=== PATIENT | male | born 1980 | race Hispanic/Latino ===

== ENCOUNTER 2019-03-29 17:08 | Inpatient (IN) | payer OTHER ==
[2019-03-29] VITALS (17 sets, daily range): BP systolic 102–121; BP diastolic 46–78
[~2019-03-29] VITALS: Ht 175.3 cm; Wt 88.4 kg
[2019-03-29] MEDS ORDERED: KETOROLAC TROMETHAMINE 30MG/ML ONE (17:12)
[2019-03-29] MEDS ORDERED: CEFAZOLIN SODIUM 1 GM VIAL ONE (17:12)
[2019-03-29] MEDS ORDERED: SODIUM CHLORIDE 0.9% 1000ML 1,000 ML IV ONE (17:13)
[2019-03-29] MEDS ORDERED: SODIUM CHLORIDE 0.9% 50 ML IV ONE (17:18)
[2019-03-29] MEDS ORDERED: TETANUS/DIPHTHERIA TOXOID [ADULT] 0.5 ML VIAL IM ONE (17:20)
[2019-03-29] MEDS ORDERED: TETANUS IMMUNE GLOBULIN 250 UNIT SYRINGE IM ONE (17:30)
[2019-03-29 17:36] LABS: BASOPHILS % (AUTO) 0.4 % (0.0-5.0); EOSINOPHILS % (AUTO) 0.2 % (0.0-8.0); HEMATOCRIT 43.6 % (42-54); LYMPHOCYTES % (AUTO) 5.9 % (21.0-51.0); MEAN CORPUSCULAR HEMOGLOBIN 31.4 pg (27.0-33.0); MEAN CORPUSCULAR HGB CONC 34.9 g/dL (32.0-36.0); MEAN CORPUSCULAR VOLUME 90.1 fL (79-99); MONOCYTES % (AUTO) 4.6 % (3.0-13.0); NEUTROPHILS % (AUTO) 88.4 % (40.0-77.0); PLATELET COUNT (AUTO) 344 K/uL (130-400); RED BLOOD CELL COUNT(AUTO) 4.84 MIL/uL (4.50-6.20); RED CELL DISTRIBUTION WIDTH 12.1 % (11.0-15.5); WHITE BLOOD COUNT (AUTO) 18.8 K/uL (4.8-10.8)
[2019-03-29 17:57] LABS: CREATININE 0.9 mg/dL (0.5-1.5); POTASSIUM 3.4 mmol/L (3.5-5.1)
[2019-03-29 18:05] LABS: INR 0.93 (0.85-1.15); PARTIAL THROMBOPLASTIN TIME 25.9 SEC (26.3-35.5); PROTHROMBIN TIME 9.8 SEC (9.6-11.6)
[2019-03-29] MEDS: LACTATED RINGERS 1000ML 1,000 ML IV SCH (19:00)
[2019-03-29] MEDS ORDERED: ZOSYN 3.375GM+NS 50ML 50 ML IV SCH (19:00)
[2019-03-29] MEDS ORDERED: KETOROLAC TROMETHAMINE 15MG/ML IV PRN (19:15)
[2019-03-29] MEDS ORDERED: KETOROLAC TROMETHAMINE 30MG/ML IV PRN (19:15)
[2019-03-29] MEDS ORDERED: LACTATED RINGERS 1000ML 1,000 ML IV ONE (19:22)
[2019-03-29] MEDS ORDERED: ONDANSETRON HCL 4 MG/2 ML VIAL IVP PRN (19:30)
[2019-03-29] MEDS ORDERED: MIDAZOLAM HCL 1 MG/ML 2ML VIAL ONE ×2 (19:31→19:32)
[2019-03-29] MEDS ORDERED: DEXAMETHASONE SOD PHOSPHATE 10MG/ML 1ML VIAL ONE (19:32)
[2019-03-29] MEDS ORDERED: ONDANSETRON HCL 4 MG/2 ML VIAL ONE (19:32)
[2019-03-29] MEDS ORDERED: LIDOCAINE PF 2% 5ML ABBOJECT ONE (19:32)
[2019-03-29] MEDS ORDERED: PROPOFOL 10 MG/ML 20ML VIAL IV ONE (19:32)
[2019-03-29] MEDS ORDERED: FENTANYL CITRATE PF 50 MCG/1 ML 2ML VIAL ONE (19:33)
[2019-03-29] MEDS ORDERED: ROCURONIUM 10MG/1ML SYR 10 MG/ML ML ONE (19:33)
[2019-03-29] MEDS ORDERED: POTASSIUM CHLORIDE 20MEQ/100ML 100 ML IV PRN ×2 (19:45→21:00)
[2019-03-29] MEDS ORDERED: LIDOCAINE HCL-MPF 1% 2ML VIAL IV PRN (19:45)
[2019-03-29] MEDS ORDERED: GLYCOPYRROLATE 1 MG/5 ML SYRINGE ONE (20:25)
[2019-03-29] MEDS ORDERED: NEOSTIGMINE 5MG/5ML SYR IV ONE (20:25)
[2019-03-29] MEDS ORDERED: RACEPINEPHRINE HCL 2.25% 0.5 ML NEB SOLN ONE (20:35)
[2019-03-29] MEDS ORDERED: MEPERIDINE-PF 25 MG/ML SYG ONE (20:57)
[2019-03-29] MEDS ORDERED: POTASSIUM CHLORIDE 10% ELIXIR 20 MEQ/15 ML UDCUP PO PRN (21:00)
[2019-03-29] MEDS ORDERED: DiphenhydrAMINE HCL 50 MG/ML VIAL IVP PRN (21:00)
[2019-03-29] MEDS ORDERED: POTASSIUM CHLORIDE 20 MEQ ERTAB PO PRN (21:00)
[2019-03-29] MEDS ORDERED: FERROUS FUMARATE 324 MG TABLET PO PRN (21:00)
[2019-03-29] MEDS: ACETAMINOPHEN EXTRA STRENGTH 500 MG TABLET PO SCH (21:00)
[2019-03-29] MEDS ORDERED: HYDROCODONE/ACETAMINOPHEN 5/325 MG TAB PO PRN (21:00)
[2019-03-29] MEDS ORDERED: CALCIUM CARBONATE 500 MG TABLET PO PRN (21:00)
[2019-03-29] MEDS ORDERED: DIPHENHYDRAMINE HCL 25 MG CAPSULE PO PRN (21:00)
[2019-03-29] MEDS ORDERED: IBUPROFEN 100 MG/5 ML SUSP UDCUP ONE (21:22)
--- NOTE | 2019-03-29 21:50 | NUR ---
PACU TRANSFER PT RECEIVED FROM PACU VIA HOSPITAL BED, AWAKE, ALERT AND VERBALLY RESPONSIVE. NO C/O PAIN OR DISCOMFORT AT THIS TIME. LEFT LOWER LEG OBSERVED ELEVATED, AND WRAPPED WITH HERBIE BANDAGES, NO BLEEDING OR DRAINAGE OBSERVED FROM SITE. SPLINT BOOT WAS REMOVED, PER PACU NURSE STATED PT HAD BEEN COMPLAINING THAT IT FELT "TOO TIGHT" DR. MEHTA WAS MADE AWARE AND GAVE THE OK TO REMOVE BOOT. PT STATED IT FELT BETTER, IS ABLE TO WIGGLE TOES, TOES WARM TO TOUCH, CAP REFILL WNL. PT AND FAMILY AT BEDSIDE ORIENTED TO ROOM, CALL LIGHT WITHIN REACH, BED IN LOWEST POSITION. Addendum: 03/30/19 at 0149 by BLANCA DAN RN Amended: Links added.
[2019-03-29] MEDS: FAMOTIDINE/PF 20 MG/2 ML VIAL IV SCH (22:27)
[2019-03-29] MEDS: SODIUM CHLORIDE 0.9% 1000ML 1,000 ML IV SCH (22:28)
[2019-03-30] VITALS (7 sets, daily range): BP systolic 103–120; BP diastolic 60–70
[2019-03-30] MEDS: LACTATED RINGERS 1000ML 1,000 ML IV SCH (04:03)
[2019-03-30] MEDS: ACETAMINOPHEN EXTRA STRENGTH 500 MG TABLET PO SCH (04:27)
[2019-03-30] MEDS: SODIUM CHLORIDE 0.9% 1000ML 1,000 ML IV SCH (05:44)
[2019-03-30 06:32] LABS: BASOPHILS % (AUTO) 0.5 % (0.0-5.0); HEMATOCRIT 35.9 % (42-54); LYMPHOCYTES % (AUTO) 13.7 % (21.0-51.0); MEAN CORPUSCULAR HGB CONC 33.7 g/dL (32.0-36.0); MEAN CORPUSCULAR VOLUME 92.1 fL (79-99); MONOCYTES % (AUTO) 7.2 % (3.0-13.0); NEUTROPHILS % (AUTO) 77.2 % (40.0-77.0); PLATELET COUNT (AUTO) 265 K/uL (130-400); RED CELL DISTRIBUTION WIDTH 12.2 % (11.0-15.5); WHITE BLOOD COUNT (AUTO) 10.2 K/uL (4.8-10.8)
[2019-03-30 06:47] LABS: ALBUMIN 2.7 g/dL (3.5-5.0); BILIRUBIN,TOTAL 0.5 mg/dL (0.2-1.0); CREATININE 0.8 mg/dL (0.5-1.5); MAGNESIUM 2.1 mg/dL (1.80-2.40); POTASSIUM 3.9 mmol/L (3.5-5.1); TOTAL PROTEIN, SERUM 5.9 g/dL (6.0-8.3)
[2019-03-30] MEDS: FAMOTIDINE/PF 20 MG/2 ML VIAL IV SCH (08:22)
[2019-03-30] MEDS ORDERED: POLYETHYLENE GLYCOL 3350 17 GM POWD.PACK PO SCH (09:00)
[2019-03-30] MEDS ORDERED: ZOSYN 3.375GM+NS 50ML 50 ML IV SCH (10:00)
[2019-03-30] MEDS ORDERED: PSYLLIUM SEED 1 EACH PACKET PO SCH (12:00)
[2019-03-30] MEDS ORDERED: ACET-66 PO (12:13)
[2019-03-30] MEDS ORDERED: KETO10TA2 PO (12:13)
[2019-03-30] MEDS ORDERED: AMOX-429 PO (12:13)
--- NOTE | 2019-03-30 14:41 | NUR ---
DISCHARGE PATIENT GIVEN DISCHARGE INSTRUCTIONS ON FOLLOW UP APPOINTMENTS, NEW PRESCRIBED MEDICATIONS AND WOUND CARE. PATIENT VERBALIZED UNDERSTANDING OF ALL EDUCATION GIVEN VIA TEACH BACK. NO DISTRESS NOTED UPON DISCHARGE. ALL BELONGINGS TAKEN WITH. IV DISCONTINUED, CATHETER INTACT.
--- NOTE | 2019-03-30 17:17 | NUR ---
PATIENT DC'D PRIOR TO CM ASSESSMENT NO CONCERNS VOICED BY PRIMARY RN, NO TRIGGERS TO CM'S, DETAILED CM ASSESSMENT DEFERRED Addendum: 03/30/19 at 1718 by PACO SÁNCHEZ RN CM Amended: Links added.
[2019-03-31] MEDS ORDERED: BISACODYL 5 MG TABLET.DR PO PRN (21:00)
[2019-04-01] MEDS ORDERED: BISACODYL 10 MG SUPP.RECT RC PRN (21:00)
== END 2019-03-30 14:47 | disposition home or self-care (01) | DRG 465 ==
LOC: EDH 17:08 → EDHIP 19:00 → 4CH 21:35
PROVIDERS: ADMIT Hospitalist; ATTEND Hospitalist
PROC: 0JBP0ZZ Excision of Left Lower Leg Subcutaneous Tissue and Fascia, Open Approach (ICD-10-PCS; 2019-03-29)
PROC: 0KQT0ZZ Repair Left Lower Leg Muscle, Open Approach (ICD-10-PCS; 2019-03-29)
PROC: 3E0234Z Introduction of Serum, Toxoid and Vaccine into Muscle, Percutaneous Approach (ICD-10-PCS; principal; 2019-03-29 19:32)
DX: S86.322A Laceration of muscle(s) and tendon(s) of peroneal muscle group at lower leg level, left leg, initial encounter (principal); S81.812A Laceration without foreign body, left lower leg, initial encounter; Z23 Encounter for immunization; D72.829 Elevated white blood cell count, unspecified; E66.9 Obesity, unspecified; W18.39XA Other fall on same level, initial encounter; Y93.89 Activity, other specified; Y92.89 Other specified places as the place of occurrence of the external cause; Y99.8 Other external cause status; Z68.28 Body mass index [BMI] 28.0-28.9, adult
CPT/HCPCS: 36415; 73590; 80048; 80053; 82948; 83735; 85025; 85610; 85730; 90714; 94640; 97039; A4355; G0378; J0690; J1100; J1670; J1885; J2001; J2175; J2250; J2405; J2543; J2704; J2710; J3010; J3490; J7030; J7120